=== PATIENT | male | born 1995 | race Caucasian/White ===

== ENCOUNTER 2018-11-10 04:30 | Emergency (ER) | payer SELFPAY ==
[~2018-11-10] VITALS: Ht 172.7 cm; Wt 63.5 kg
--- NOTE | 2018-11-10 04:30 | NUR ---
PT BIB [facility], PREBOOK. TAKEN TO CHAIR E
[2018-11-10 04:32] VITALS: BP 114/81
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
--- NOTE | 2018-11-10 04:47 | NUR ---
Dr. Acevedo examining patient.
[2018-11-10 05:05] VITALS: BP 114/81
== END 2018-11-10 05:05 ==
LOC: MED 04:30
DX: M79.651 Pain in right thigh (principal); V49.9XXA Car occupant (driver) (passenger) injured in unspecified traffic accident, initial encounter; Y93.89 Activity, other specified; Y92.488 Other paved roadways as the place of occurrence of the external cause; Y99.8 Other external cause status
CPT/HCPCS: 90471; 90715; 99283